=== PATIENT | female | born 1985 | race Asian ===

== ENCOUNTER 2022-05-10 15:01 | Outpatient (CLI) | payer OTHER ==
[2022-05-10 15:53] LABS: PLATELET COUNT 254 K/uL (152-353)
[2022-05-10 16:08] LABS: POTASSIUM 3.6 mmol/L (3.6-5.2); SODIUM 139 mmol/L (136-145)
== END 2022-05-10 19:32 | disposition home or self-care (01) ==
LOC: LABW 15:01
PROVIDERS: ATTEND Nurse Practitioner Family
DX: R11.0 Nausea (principal); N93.9 Abnormal uterine and vaginal bleeding, unspecified; E28.2 Polycystic ovarian syndrome; Z13.1 Encounter for screening for diabetes mellitus
CPT/HCPCS: 36415; 80053; 82533; 82627; 82670; 82672; 83001; 83002; 83036; 83498; 83525; 83527; 84144; 84146; 84270; 84402; 84403; 84439; 84443; 84481; 84702; 85027

== ENCOUNTER 2022-05-28 09:55 | Outpatient (CLI) | payer OTHER | END 2022-05-28 18:51 | disposition home or self-care (01) | LOC: US 09:55 | PROVIDERS: ATTEND Nurse Practitioner Family | DX: N93.8 Other specified abnormal uterine and vaginal bleeding (principal) ==